=== PATIENT | male | born 1950 | race Caucasian/White ===

== ENCOUNTER 2023-01-07 13:50 | Inpatient (IN) ==
[2023-01-07] MEDS ORDERED: Albuterol/Ipratropium NEB.SOL (2.5/0.5 MG) 3 ML NEB.SOLN INH ONE (13:53)
[2023-01-07 14:19] LABS: ABS Eosinophils 0.1 10^3/uL (0.0-0.5); ABS Lymphocytes 0.4 10^3/uL (1.0-4.8); ABS Monocytes 0.9 10^3/uL (0.0-1.1); ABS Neutrophils 6.8 10^3/uL (1.5-7.6); Eosinophil % 1.1 %; Hematocrit 38.9 % (38-53); Hemoglobin 13.2 g/dL (13.2-16.3); Lymphocyte % 4.4 %; Mean Corpuscular Hgb Conc 33.9 g/dL (31-36); Mean Corpuscular Volume 100.4 fL (80-97); Mean Platelet Volume 9.2 fL (7.5-11.2); Platelet Count 91 10^3/uL (150-450); Red Blood Count 3.87 10^6/uL (4.06-5.63); Red Cell Distribution Width 20.8 % (12-17); White Blood Count 8.2 10^3/uL (3.6-10.2)
[2023-01-07 14:34] LABS: High Sens Troponin Baseline 24 pg/mL (<20)
[2023-01-07 14:42] LABS: PCO2 Arterial 31 mmHg (35-45); PO2 Arterial 97 mmHg (80-100)
[2023-01-07 14:53] LABS: ALT 15 U/L (7-52); Albumin 4.5 g/dL (3.2-5.2); Albumin/Globulin Ratio 1.7 (1-3); Alkaline Phosphatase 65 U/L (35-149); Blood Urea Nitrogen 23 mg/dL (6-24); C Reactive Protein 15.02 mg/L (<8.01); CO2 Carbon Dioxide 24 mmol/L (22-32); Calcium 9.7 mg/dL (8.6-10.3); Chloride 105 mmol/L (101-111); Creatinine, Serum 1.01 mg/dL (0.67-1.17); Globulin 2.6 g/dL (2-4); Glucose 87 mg/dL (70-100); Sodium 137 mmol/L (135-145); Total Protein 7.1 g/dL (6.4-8.9); eGFR CKD-EPI 79.5 (>60)
[2023-01-07] MEDS ORDERED: Iohexol 350 (CONTRAST) 500 ML MDV IV ONE (14:55)
[2023-01-07 14:59] LABS: Anion Gap 8 mmol/L (2-16)
[2023-01-07] MEDS ORDERED: Cefepime 2 GM in Dextrose 2 GM/50 ML BAG IV ONE (15:17)
[2023-01-07 15:22] LABS: High Sensitivity Troponin 1 Hr 24 pg/mL (<20)
[2023-01-07] MEDS ORDERED: Furosemide 40 mg/4 ml IV VIAL IV SLOW PU ONE (15:46)
[2023-01-07] MEDS ORDERED: methylPREDNISolone SOD SUCC 125 mg 2 ML VIAL IV ONE (15:46)
[2023-01-07 17:27] LABS: Urine Appearance Clear; Urine Bilirubin Negative (Negative); Urine Blood Negative (Negative); Urine Color Yellow; Urine Glucose Negative (Negative); Urine Ketones Negative (Negative); Urine Nitrite Negative (Negative); Urine Protein Negative (Negative); Urine Specific Gravity 1.019 (1.002-1.030); Urine Urobilinogen Negative (Negative)
[2023-01-07] MEDS: Azithromycin 500 mg/250 ml NS 500 MG/250 ML BAG IVPB SCH (20:03)
[2023-01-07] MEDS: Enoxaparin 40 MG/0.4 ML SYR SUBCUT SCH (20:03)
[2023-01-07] MEDS: methylPREDNISolone SOD SUCC 40 mg/ml 1 ml VIAL IV SCH (23:57)
[2023-01-08 04:35] LABS: Hematocrit 37.5 % (38-53); Hemoglobin 13.1 g/dL (13.2-16.3); Mean Corpuscular Hemoglobin 34.3 pg (27-33); Mean Corpuscular Hgb Conc 34.9 g/dL (31-36); Mean Corpuscular Volume 98.3 fL (80-97); Mean Platelet Volume 9.6 fL (7.5-11.2); Platelet Count 78 10^3/uL (150-450); Red Blood Count 3.81 10^6/uL (4.06-5.63); White Blood Count 3.7 10^3/uL (3.6-10.2)
[2023-01-08 05:06] LABS: Calcium 9.7 mg/dL (8.6-10.3); Creatinine, Serum 1.11 mg/dL (0.67-1.17); Phosphorus 4.7 mg/dL (2.5-5.0); Potassium 4.4 mmol/L (3.5-5.0)
[2023-01-08 05:13] LABS: Anisocytosis 1+
[2023-01-08 05:14] LABS: ABS Lymphocytes 0.1 10^3/uL (1.0-4.8); ABS Monocytes 0.1 10^3/uL (0.0-1.1); ABS Neutrophils 3.6 10^3/uL (1.5-7.6); Nucleated Red Blood Cells % 0.1 /100 WBC (0.0-0.4)
[2023-01-08] MEDS: methylPREDNISolone SOD SUCC 40 mg/ml 1 ml VIAL IV SCH ×3 (08:44→23:07)
[2023-01-08] MEDS ORDERED: Albuterol 2.5mg/3 ml (0.083%) NEB.SOLN INH PRN (11:18)
[2023-01-08] MEDS: Cefepime 1 GM in Dextrose 1 GM/50 ML BAG IV SCH ×2 (11:28→21:14)
[2023-01-08] MEDS: Azithromycin 500 mg/250 ml NS 500 MG/250 ML BAG IVPB SCH (17:31)
[2023-01-08] MEDS ORDERED: Ipratropium HFA INHALER(NF) (ALTERNATIVE = NEBS) INH SCH (21:00)
[2023-01-08] MEDS: Enoxaparin 40 MG/0.4 ML SYR SUBCUT SCH (21:14)
[2023-01-09 04:37] LABS: ABS Lymphocytes 0.2 10^3/uL (1.0-4.8); ABS Monocytes 0.5 10^3/uL (0.0-1.1); ABS Neutrophils 10.8 10^3/uL (1.5-7.6); ABS Nucleated RBC 0.01 10^3/ul; Hematocrit 38.7 % (38-53); Hemoglobin 13.4 g/dL (13.2-16.3); Lymphocyte % 1.3 %; Mean Corpuscular Hemoglobin 34.5 pg (27-33); Mean Corpuscular Hgb Conc 34.6 g/dL (31-36); Mean Corpuscular Volume 99.6 fL (80-97); Mean Platelet Volume 8.9 fL (7.5-11.2); Nucleated Red Blood Cells % 0.1 /100 WBC (0.0-0.4); Platelet Count 87 10^3/uL (150-450); Red Blood Count 3.88 10^6/uL (4.06-5.63); Red Cell Distribution Width 20.5 % (12-17); White Blood Count 11.5 10^3/uL (3.6-10.2)
[2023-01-09 05:03] LABS: Calcium 9.5 mg/dL (8.6-10.3); Creatinine, Serum 0.95 mg/dL (0.67-1.17); Phosphorus 4.7 mg/dL (2.5-5.0); Potassium 4.6 mmol/L (3.5-5.0); eGFR CKD-EPI 85.6 (>60)
[2023-01-09] MEDS: methylPREDNISolone SOD SUCC 40 mg/ml 1 ml VIAL IV SCH ×2 (08:24→21:39)
[2023-01-09] MEDS: Tiotropium Brom/Olodaterol MDI (ACUTE) INH SCH (10:05)
[2023-01-09] MEDS: Cefepime 1 GM in Dextrose 1 GM/50 ML BAG IV SCH (10:09)
[2023-01-09] MEDS: Azithromycin 500 mg/250 ml NS 500 MG/250 ML BAG IVPB SCH (18:10)
[2023-01-09] MEDS: Enoxaparin 40 MG/0.4 ML SYR SUBCUT SCH (21:39)
[2023-01-10 04:22] LABS: Hematocrit 36.7 % (38-53); Hemoglobin 12.5 g/dL (13.2-16.3); Mean Corpuscular Hemoglobin 34.6 pg (27-33); Mean Corpuscular Hgb Conc 34.2 g/dL (31-36); Mean Corpuscular Volume 101.1 fL (80-97); Platelet Count 81 10^3/uL (150-450); Red Blood Count 3.63 10^6/uL (4.06-5.63); Red Cell Distribution Width 19.8 % (12-17)
[2023-01-10 04:47] LABS: Calcium 9.1 mg/dL (8.6-10.3); Creatinine, Serum 1.1 mg/dL (0.67-1.17); Magnesium 2.1 mg/dL (1.9-2.7); Phosphorus 3.9 mg/dL (2.5-5.0); Potassium 4.7 mmol/L (3.5-5.0); eGFR CKD-EPI 71.8 (>60)
[2023-01-10 04:49] LABS: ABS Lymphocytes 0.1 10^3/uL (1.0-4.8); ABS Monocytes 0.5 10^3/uL (0.0-1.1); ABS Neutrophils 9.3 10^3/uL (1.5-7.6); Eosinophil % 0.1 %; Lymphocyte % 1.2 %
[2023-01-10] MEDS: Tiotropium Brom/Olodaterol MDI (ACUTE) INH SCH (07:42)
[2023-01-10] MEDS: methylPREDNISolone SOD SUCC 40 mg/ml 1 ml VIAL IV SCH (07:44)
[2023-01-10 11:22] VITALS: BP 122/75
== END 2023-01-10 14:01 | disposition home or self-care (01) | DRG 133 ==
LOC: ED 13:50 → EDHOLD 17:01 → SUATTDRO 17:01 → ICU 23:22
PROVIDERS: ADMIT Student in an Organized Health Care Education/Training Program; ATTEND Internal Medicine Critical Care Medicine

== ENCOUNTER 2023-02-14 02:03 | Inpatient (IN) ==
[2023-02-14] MEDS ORDERED: methylPREDNISolone SOD SUCC 125 mg 2 ML VIAL IV ONE (02:32)
[2023-02-14 02:54] LABS: ABS Lymphocytes 0.2 10^3/uL (1.0-4.8); ABS Monocytes 0.6 10^3/uL (0.0-1.1); ABS Neutrophils 12.6 10^3/uL (1.5-7.6); ABS Nucleated RBC 0.01 10^3/ul; Eosinophil % 0.1 %; Hematocrit 38.6 % (38-53); Hemoglobin 12.9 g/dL (13.2-16.3); Lymphocyte % 1.1 %; Mean Corpuscular Hemoglobin 33.4 pg (27-33); Mean Corpuscular Hgb Conc 33.4 g/dL (31-36); Mean Corpuscular Volume 99.8 fL (80-97); Mean Platelet Volume 9.4 fL (7.5-11.2); Nucleated Red Blood Cells % 0.1 /100 WBC (0.0-0.4); Platelet Count 79 10^3/uL (150-450); Red Blood Count 3.87 10^6/uL (4.06-5.63); Red Cell Distribution Width 15.2 % (12-17); White Blood Count 13.4 10^3/uL (3.6-10.2)
[2023-02-14 03:10] LABS: Albumin 3.8 g/dL (3.2-5.2); Albumin/Globulin Ratio 1.3 (1-3); Creatinine, Serum 1.1 mg/dL (0.67-1.17); Globulin 2.9 g/dL (2-4); Potassium 4.4 mmol/L (3.5-5.0); Total Bilirubin 0.6 mg/dL (0.2-1.0); Total Protein 6.7 g/dL (6.4-8.9); eGFR CKD-EPI 71.8 (>60)
[2023-02-14] MEDS ORDERED: Iodixanol (CONTRAST) 320 MG/ML 100 ML SDV IV ONE (03:20)
[2023-02-14] MEDS ORDERED: Albuterol 2.5mg/3 ml (0.083%) NEB.SOLN INH ONE (03:57)
[2023-02-14] MEDS ORDERED: Polyethylene Glycol 3350 17 GM PACKET PO PRN (04:35)
[2023-02-14 04:38] LABS: High Sensitivity Troponin 1 Hr 67 pg/mL (<20)
[2023-02-14] MEDS ORDERED: Nicotine PATCH 7 MG/24 HR PATCH TRANSDERM PRN (04:39)
[2023-02-14] MEDS ORDERED: Albuterol/Ipratropium NEB.SOL (2.5/0.5 MG) 3 ML NEB.SOLN INH PRN (04:39)
[2023-02-14] MEDS ORDERED: Azithromycin 500 mg/250 ml NS 500 MG/250 ML BAG IVPB SCH (05:00)
[2023-02-14] MEDS ORDERED: Albuterol/Ipratropium NEB.SOL (2.5/0.5 MG) 3 ML NEB.SOLN INH SCH (07:00)
[2023-02-14] MEDS: Albuterol 2.5mg/3 ml (0.083%) NEB.SOLN INH SCH ×3 (07:27→19:06)
[2023-02-14] MEDS: Enoxaparin 40 MG/0.4 ML SYR SUBCUT SCH (08:19)
[2023-02-14] MEDS: Azithromycin 500 mg/250 ml NS 500 MG/250 ML BAG IVPB SCH (08:19)
[2023-02-14] MEDS ORDERED: methylPREDNISolone SOD SUCC 40 mg/ml 1 ml VIAL IV SCH (10:00)
[2023-02-14] MEDS: Tiotropium Brom/Olodaterol MDI (ACUTE) INH SCH (12:20)
[2023-02-14 21:26] LABS: Magnesium 1.7 mg/dL (1.9-2.7)
[2023-02-14 21:31] LABS: Phosphorus 2.8 mg/dL (2.5-5.0)
[2023-02-15 05:00] LABS: ABS Lymphocytes 0.1 10^3/uL (1.0-4.8); ABS Monocytes 0.6 10^3/uL (0.0-1.1); Hematocrit 33.7 % (38-53); Hemoglobin 11.5 g/dL (13.2-16.3); Lymphocyte % 1.7 %; Mean Corpuscular Hemoglobin 34.2 pg (27-33); Mean Corpuscular Hgb Conc 34.3 g/dL (31-36); Mean Corpuscular Volume 99.8 fL (80-97); Mean Platelet Volume 9.2 fL (7.5-11.2); Platelet Count 75 10^3/uL (150-450); Red Blood Count 3.37 10^6/uL (4.06-5.63); Red Cell Distribution Width 14.6 % (12-17); White Blood Count 8.8 10^3/uL (3.6-10.2)
[2023-02-15 05:10] LABS: Calcium 9.1 mg/dL (8.6-10.3); Creatinine, Serum 0.84 mg/dL (0.67-1.17); Magnesium 1.9 mg/dL (1.9-2.7); Phosphorus 3.7 mg/dL (2.5-5.0); Potassium 4.4 mmol/L (3.5-5.0); eGFR CKD-EPI 93.2 (>60)
[2023-02-15] MEDS: Enoxaparin 40 MG/0.4 ML SYR SUBCUT SCH (05:47)
[2023-02-15] MEDS: Tiotropium Brom/Olodaterol MDI (ACUTE) INH SCH (07:00)
[2023-02-15] MEDS: Albuterol 2.5mg/3 ml (0.083%) NEB.SOLN INH SCH (07:00)
[2023-02-15] MEDS ORDERED: Albuterol 2.5mg/3 ml (0.083%) NEB.SOLN INH PRN (07:02)
[2023-02-15] MEDS: Azithromycin 500 mg/250 ml NS 500 MG/250 ML BAG IVPB SCH (08:31)
[2023-02-16] MEDS: Enoxaparin 40 MG/0.4 ML SYR SUBCUT SCH (06:11)
[2023-02-16 06:31] LABS: ABS Lymphocytes 0.3 10^3/uL (1.0-4.8); ABS Monocytes 0.7 10^3/uL (0.0-1.1); ABS Neutrophils 10.1 10^3/uL (1.5-7.6); ABS Nucleated RBC 0.01 10^3/ul; Eosinophil % 0.1 %; Hematocrit 36.4 % (38-53); Hemoglobin 12.3 g/dL (13.2-16.3); Lymphocyte % 3.1 %; Mean Corpuscular Hemoglobin 33.6 pg (27-33); Mean Corpuscular Hgb Conc 33.8 g/dL (31-36); Mean Corpuscular Volume 99.4 fL (80-97); Mean Platelet Volume 8.2 fL (7.5-11.2); Platelet Count 78 10^3/uL (150-450); Red Blood Count 3.66 10^6/uL (4.06-5.63); White Blood Count 11.2 10^3/uL (3.6-10.2)
[2023-02-16 06:36] LABS: INR 1.24 (0.88-1.18)
[2023-02-16 06:44] LABS: Calcium 9.2 mg/dL (8.6-10.3); Creatinine, Serum 1.03 mg/dL (0.67-1.17); Phosphorus 3.2 mg/dL (2.5-5.0); Potassium 4.3 mmol/L (3.5-5.0); eGFR CKD-EPI 77.7 (>60)
[2023-02-16] MEDS: Tiotropium Brom/Olodaterol MDI (ACUTE) INH SCH (07:21)
[2023-02-16] MEDS: Azithromycin 500 mg/250 ml NS 500 MG/250 ML BAG IVPB SCH (07:44)
[2023-02-16] MEDS: Albuterol/Ipratropium NEB.SOL (2.5/0.5 MG) 3 ML NEB.SOLN INH SCH (20:22)
[2023-02-17] MEDS: Enoxaparin 40 MG/0.4 ML SYR SUBCUT SCH (05:21)
[2023-02-17 05:42] LABS: ABS Basophils 0.1 10^3/uL (0.0-0.1); ABS Lymphocytes 0.3 10^3/uL (1.0-4.8); ABS Monocytes 0.8 10^3/uL (0.0-1.1); ABS Neutrophils 7.4 10^3/uL (1.5-7.6); Eosinophil % 0.2 %; Hematocrit 36.4 % (38-53); Hemoglobin 12.4 g/dL (13.2-16.3); Mean Corpuscular Hemoglobin 33.6 pg (27-33); Mean Corpuscular Hgb Conc 33.9 g/dL (31-36); Mean Platelet Volume 9.2 fL (7.5-11.2); Platelet Count 74 10^3/uL (150-450); Red Blood Count 3.68 10^6/uL (4.06-5.63); Red Cell Distribution Width 15.6 % (12-17); White Blood Count 8.5 10^3/uL (3.6-10.2)
[2023-02-17 05:55] LABS: Calcium 9.3 mg/dL (8.6-10.3); Creatinine, Serum 0.86 mg/dL (0.67-1.17); Magnesium 1.9 mg/dL (1.9-2.7); Phosphorus 3.5 mg/dL (2.5-5.0); Potassium 4.3 mmol/L (3.5-5.0); eGFR CKD-EPI 92.6 (>60)
[2023-02-17] MEDS: Albuterol/Ipratropium NEB.SOL (2.5/0.5 MG) 3 ML NEB.SOLN INH SCH ×2 (07:29→19:41)
[2023-02-17] MEDS: Azithromycin 500 mg/250 ml NS 500 MG/250 ML BAG IVPB SCH (07:36)
[2023-02-17] MEDS ORDERED: Lidocaine 2.5%/Prilocain 2.5% 5 GM TUBE TOPICAL ONE (13:44)
[2023-02-18 04:58] LABS: ABS Lymphocytes 0.3 10^3/uL (1.0-4.8); ABS Monocytes 0.7 10^3/uL (0.0-1.1); ABS Neutrophils 7.1 10^3/uL (1.5-7.6); ABS Nucleated RBC 0.01 10^3/ul; Eosinophil % 0.3 %; Hemoglobin 12.5 g/dL (13.2-16.3); Lymphocyte % 4.1 %; Mean Corpuscular Hemoglobin 33.5 pg (27-33); Mean Corpuscular Hgb Conc 33.8 g/dL (31-36); Mean Corpuscular Volume 99.1 fL (80-97); Mean Platelet Volume 8.5 fL (7.5-11.2); Nucleated Red Blood Cells % 0.1 /100 WBC (0.0-0.4); Platelet Count 73 10^3/uL (150-450); Red Blood Count 3.74 10^6/uL (4.06-5.63); Red Cell Distribution Width 15.2 % (12-17); White Blood Count 8.2 10^3/uL (3.6-10.2)
[2023-02-18 05:11] LABS: Calcium 9.1 mg/dL (8.6-10.3); Creatinine, Serum 0.93 mg/dL (0.67-1.17); Potassium 4.1 mmol/L (3.5-5.0); eGFR CKD-EPI 87.8 (>60)
[2023-02-18] MEDS: Enoxaparin 40 MG/0.4 ML SYR SUBCUT SCH (06:17)
[2023-02-18] MEDS: Albuterol/Ipratropium NEB.SOL (2.5/0.5 MG) 3 ML NEB.SOLN INH SCH ×2 (07:00→19:33)
[2023-02-18] MEDS ORDERED: Albuterol 2.5mg/3 ml (0.083%) NEB.SOLN INH PRN (18:50)
[2023-02-18] MEDS ORDERED: Albuterol 2.5mg/3 ml (0.083%) NEB.SOLN INH SCH (19:00)
[2023-02-19] MEDS: Enoxaparin 40 MG/0.4 ML SYR SUBCUT SCH (04:36)
[2023-02-19 05:03] LABS: ABS Lymphocytes 0.3 10^3/uL (1.0-4.8); ABS Monocytes 0.6 10^3/uL (0.0-1.1); ABS Neutrophils 6.3 10^3/uL (1.5-7.6); ABS Nucleated RBC 0.01 10^3/ul; Eosinophil % 0.5 %; Hematocrit 36.3 % (38-53); Hemoglobin 12.3 g/dL (13.2-16.3); Lymphocyte % 4.1 %; Mean Corpuscular Hemoglobin 33.6 pg (27-33); Mean Corpuscular Volume 98.9 fL (80-97); Nucleated Red Blood Cells % 0.1 /100 WBC (0.0-0.4); Platelet Count 74 10^3/uL (150-450); Red Blood Count 3.67 10^6/uL (4.06-5.63); White Blood Count 7.2 10^3/uL (3.6-10.2)
[2023-02-19 05:08] LABS: Calcium 9.1 mg/dL (8.6-10.3); Creatinine, Serum 0.86 mg/dL (0.67-1.17); Magnesium 1.9 mg/dL (1.9-2.7); Potassium 3.9 mmol/L (3.5-5.0); eGFR CKD-EPI 92.6 (>60)
[2023-02-19] MEDS: Albuterol/Ipratropium NEB.SOL (2.5/0.5 MG) 3 ML NEB.SOLN INH SCH ×3 (07:40→19:39)
[2023-02-19] MEDS: Tiotropium Brom/Olodaterol MDI (ACUTE) INH SCH (11:42)
[2023-02-19] MEDS: Albuterol HFA INHALER 8 gm MDI INH SCH ×3 (11:42→21:40)
[2023-02-19] MEDS ORDERED: SPIRIVA Respimat (tiotropium) 2.5 mcg/inh Inhaler INH SCH (12:00)
[2023-02-20] MEDS: Enoxaparin 40 MG/0.4 ML SYR SUBCUT SCH (04:10)
[2023-02-20 04:30] LABS: ABS Lymphocytes 0.4 10^3/uL (1.0-4.8); ABS Monocytes 0.6 10^3/uL (0.0-1.1); ABS Neutrophils 6.4 10^3/uL (1.5-7.6); ABS Nucleated RBC 0.01 10^3/ul; Eosinophil % 0.6 %; Hematocrit 38.6 % (38-53); Hemoglobin 13.1 g/dL (13.2-16.3); Lymphocyte % 4.7 %; Mean Corpuscular Hemoglobin 33.5 pg (27-33); Mean Corpuscular Hgb Conc 33.9 g/dL (31-36); Mean Corpuscular Volume 98.7 fL (80-97); Mean Platelet Volume 8.7 fL (7.5-11.2); Nucleated Red Blood Cells % 0.2 /100 WBC (0.0-0.4); Platelet Count 82 10^3/uL (150-450); Red Blood Count 3.91 10^6/uL (4.06-5.63); Red Cell Distribution Width 15.3 % (12-17); White Blood Count 7.5 10^3/uL (3.6-10.2)
[2023-02-20 04:45] LABS: Calcium 9.6 mg/dL (8.6-10.3); Creatinine, Serum 0.99 mg/dL (0.67-1.17); Potassium 4.1 mmol/L (3.5-5.0); eGFR CKD-EPI 81.4 (>60)
[2023-02-20] MEDS: Tiotropium Brom/Olodaterol MDI (ACUTE) INH SCH (07:07)
[2023-02-20] MEDS: Albuterol HFA INHALER 8 gm MDI INH SCH ×3 (08:02→19:21)
[2023-02-20] MEDS: Albuterol/Ipratropium NEB.SOL (2.5/0.5 MG) 3 ML NEB.SOLN INH SCH ×2 (13:21→17:23)
[2023-02-20] MEDS: Morphine 2 MG/ML SYRINGE IV PRN (19:57)
[2023-02-21] MEDS: Enoxaparin 40 MG/0.4 ML SYR SUBCUT SCH (04:08)
[2023-02-21 04:16] LABS: ABS Lymphocytes 0.3 10^3/uL (1.0-4.8); ABS Monocytes 0.6 10^3/uL (0.0-1.1); ABS Neutrophils 6.5 10^3/uL (1.5-7.6); Eosinophil % 0.5 %; Hematocrit 37.3 % (38-53); Hemoglobin 12.6 g/dL (13.2-16.3); Lymphocyte % 3.8 %; Mean Corpuscular Hemoglobin 33.4 pg (27-33); Mean Corpuscular Hgb Conc 33.9 g/dL (31-36); Mean Corpuscular Volume 98.8 fL (80-97); Mean Platelet Volume 8.9 fL (7.5-11.2); Nucleated Red Blood Cells % 0.1 /100 WBC (0.0-0.4); Platelet Count 84 10^3/uL (150-450); Red Blood Count 3.78 10^6/uL (4.06-5.63); Red Cell Distribution Width 15.3 % (12-17); White Blood Count 7.5 10^3/uL (3.6-10.2)
[2023-02-21 04:30] LABS: Calcium 9.1 mg/dL (8.6-10.3); Creatinine, Serum 0.94 mg/dL (0.67-1.17); Potassium 4.1 mmol/L (3.5-5.0); eGFR CKD-EPI 86.7 (>60)
[2023-02-21] MEDS: Albuterol HFA INHALER 8 gm MDI INH SCH ×3 (07:18→20:23)
[2023-02-21] MEDS: Tiotropium Brom/Olodaterol MDI (ACUTE) INH SCH (07:18)
[2023-02-21] MEDS: Morphine 2 MG/ML SYRINGE IV PRN ×2 (09:26→21:06)
[2023-02-21] MEDS: Albuterol/Ipratropium NEB.SOL (2.5/0.5 MG) 3 ML NEB.SOLN INH SCH ×2 (13:38→16:38)
[2023-02-22] MEDS: Enoxaparin 40 MG/0.4 ML SYR SUBCUT SCH (06:05)
[2023-02-22] MEDS: Tiotropium Brom/Olodaterol MDI (ACUTE) INH SCH (06:59)
[2023-02-22] MEDS: Albuterol HFA INHALER 8 gm MDI INH SCH ×3 (07:01→21:06)
[2023-02-22] MEDS: Albuterol/Ipratropium NEB.SOL (2.5/0.5 MG) 3 ML NEB.SOLN INH SCH ×2 (12:20→16:41)
[2023-02-23] MEDS: Enoxaparin 40 MG/0.4 ML SYR SUBCUT SCH (06:15)
[2023-02-23] MEDS: Albuterol HFA INHALER 8 gm MDI INH SCH ×3 (07:43→19:40)
[2023-02-23] MEDS: Tiotropium Brom/Olodaterol MDI (ACUTE) INH SCH (07:43)
[2023-02-23] MEDS: Albuterol/Ipratropium NEB.SOL (2.5/0.5 MG) 3 ML NEB.SOLN INH SCH ×2 (11:42→16:20)
[2023-02-23] MEDS ORDERED: Magnesium Hydroxide LIQ 30 ML UDC PO PRN (14:44)
[2023-02-24] MEDS: Enoxaparin 40 MG/0.4 ML SYR SUBCUT SCH (05:27)
[2023-02-24] MEDS: Albuterol HFA INHALER 8 gm MDI INH SCH ×3 (07:06→20:16)
[2023-02-24] MEDS: Tiotropium Brom/Olodaterol MDI (ACUTE) INH SCH (07:07)
[2023-02-24] MEDS: Albuterol/Ipratropium NEB.SOL (2.5/0.5 MG) 3 ML NEB.SOLN INH SCH ×2 (12:59→16:42)
[2023-02-25] MEDS: Enoxaparin 40 MG/0.4 ML SYR SUBCUT SCH (06:14)
[2023-02-25] MEDS: Albuterol HFA INHALER 8 gm MDI INH SCH ×3 (07:30→20:25)
[2023-02-25] MEDS: Tiotropium Brom/Olodaterol MDI (ACUTE) INH SCH (07:30)
[2023-02-25] MEDS: Albuterol/Ipratropium NEB.SOL (2.5/0.5 MG) 3 ML NEB.SOLN INH SCH ×2 (11:49→16:57)
[2023-02-25 11:57] LABS: PCO2 Arterial 34 mmHg (35-45)
[2023-02-25 12:00] LABS: PO2 Arterial 51 mmHg (80-100)
[2023-02-26] MEDS: Enoxaparin 40 MG/0.4 ML SYR SUBCUT SCH (06:20)
[2023-02-26] MEDS: Albuterol HFA INHALER 8 gm MDI INH SCH ×3 (07:01→20:49)
[2023-02-26] MEDS: Tiotropium Brom/Olodaterol MDI (ACUTE) INH SCH (07:02)
[2023-02-26] MEDS: Albuterol/Ipratropium NEB.SOL (2.5/0.5 MG) 3 ML NEB.SOLN INH SCH ×2 (11:52→16:19)
[2023-02-27] MEDS: Enoxaparin 40 MG/0.4 ML SYR SUBCUT SCH (06:00)
[2023-02-27] MEDS: Tiotropium Brom/Olodaterol MDI (ACUTE) INH SCH (07:00)
[2023-02-27] MEDS: Albuterol HFA INHALER 8 gm MDI INH SCH ×3 (07:00→19:44)
[2023-02-27] MEDS: Albuterol/Ipratropium NEB.SOL (2.5/0.5 MG) 3 ML NEB.SOLN INH SCH ×2 (12:20→17:32)
[2023-02-28] MEDS: Enoxaparin 40 MG/0.4 ML SYR SUBCUT SCH ×2 (06:05→08:09)
[2023-02-28] MEDS: Albuterol HFA INHALER 8 gm MDI INH SCH ×3 (07:12→21:09)
[2023-02-28] MEDS: Tiotropium Brom/Olodaterol MDI (ACUTE) INH SCH (07:12)
[2023-02-28] MEDS: Albuterol/Ipratropium NEB.SOL (2.5/0.5 MG) 3 ML NEB.SOLN INH SCH ×2 (12:21→16:59)
[2023-03-01] MEDS: Enoxaparin 40 MG/0.4 ML SYR SUBCUT SCH (06:07)
[2023-03-01 06:18] LABS: Hematocrit 37.1 % (38-53); Hemoglobin 12.7 g/dL (13.2-16.3); Mean Platelet Volume 8.7 fL (7.5-11.2); Platelet Count 65 10^3/uL (150-450)
[2023-03-01 06:47] LABS: Creatinine, Serum 0.91 mg/dL (0.67-1.17); eGFR CKD-EPI 90.1 (>60)
[2023-03-01] MEDS: Albuterol HFA INHALER 8 gm MDI INH SCH ×2 (07:22→13:49)
[2023-03-01] MEDS: Tiotropium Brom/Olodaterol MDI (ACUTE) INH SCH (07:22)
[2023-03-01] MEDS: Albuterol/Ipratropium NEB.SOL (2.5/0.5 MG) 3 ML NEB.SOLN INH SCH ×2 (11:39→15:54)
[2023-03-01 16:57] VITALS: BP 112/72
== END 2023-03-01 17:41 | disposition home or self-care (01) | DRG 133 ==
LOC: ED 02:03 → SUATTDRO 04:36 → EDHOLD 04:36 → ICU 06:29
PROVIDERS: ADMIT Internal Medicine; ATTEND Internal Medicine

== ENCOUNTER 2023-03-01 20:08 | Observation (INO) ==
[2023-03-01] MEDS ORDERED: Ondansetron 4 mg VIAL 2 MG/ML 2 ml VIAL IV PRN (22:57)
[2023-03-01] MEDS ORDERED: Magnesium Hydroxide LIQ 30 ML UDC PO PRN (22:57)
[2023-03-01] MEDS ORDERED: Polyethylene Glycol 3350 17 GM PACKET PO PRN ×2 (22:57→23:26)
[2023-03-01] MEDS ORDERED: Enoxaparin 40 MG/0.4 ML SYR SUBCUT SCH (23:00)
[2023-03-01] MEDS ORDERED: Albuterol HFA INHALER 8 gm MDI INH PRN (23:26)
[2023-03-01] MEDS ORDERED: Albuterol 2.5mg/3 ml (0.083%) NEB.SOLN INH PRN (23:26)
[2023-03-02 05:08] LABS: ABS Lymphocytes 0.4 10^3/uL (1.0-4.8); ABS Monocytes 0.6 10^3/uL (0.0-1.1); ABS Neutrophils 6.9 10^3/uL (1.5-7.6); ABS Nucleated RBC 0.01 10^3/ul; Eosinophil % 0.6 %; Hematocrit 37.5 % (38-53); Hemoglobin 12.9 g/dL (13.2-16.3); Lymphocyte % 4.8 %; Mean Corpuscular Hemoglobin 33.8 pg (27-33); Mean Corpuscular Hgb Conc 34.4 g/dL (31-36); Mean Corpuscular Volume 98.3 fL (80-97); Mean Platelet Volume 8.9 fL (7.5-11.2); Nucleated Red Blood Cells % 0.1 /100 WBC (0.0-0.4); Platelet Count 61 10^3/uL (150-450); Red Blood Count 3.81 10^6/uL (4.06-5.63); Red Cell Distribution Width 15.3 % (12-17)
[2023-03-02 05:20] LABS: Calcium 9.1 mg/dL (8.6-10.3); Creatinine, Serum 0.92 mg/dL (0.67-1.17); Magnesium 1.9 mg/dL (1.9-2.7); Potassium 3.9 mmol/L (3.5-5.0); eGFR CKD-EPI 88.9 (>60)
[2023-03-02] MEDS ORDERED: Albuterol/Ipratropium NEB.SOL (2.5/0.5 MG) 3 ML NEB.SOLN INH SCH (07:00)
[2023-03-02] MEDS ORDERED: Albuterol HFA INHALER 8 gm MDI INH PRN (07:43)
[2023-03-02] MEDS: Albuterol HFA INHALER 8 gm MDI INH SCH ×2 (08:42→13:59)
[2023-03-02] MEDS ORDERED: Nicotine PATCH 7 MG/24 HR PATCH TRANSDERM PRN (09:00)
[2023-03-02] MEDS ORDERED: Multivitamins/Minerals TAB PO SCH (09:00)
[2023-03-02] MEDS ORDERED: Tiotropium Brom/Olodaterol MDI (ACUTE) INH SCH (09:00)
[2023-03-02] MEDS: Albuterol/Ipratropium NEB.SOL (2.5/0.5 MG) 3 ML NEB.SOLN INH SCH ×2 (11:59→17:19)
[2023-03-02 14:25] VITALS: BP 112/69
== END 2023-03-02 18:25 | disposition home or self-care (01) ==
LOC: ED 20:08 → EDHOLD 22:57 → INTOOBSV 22:57 → SUATTDRO 22:57 → ICU 03-02 00:14
PROVIDERS: ADMIT Internal Medicine; ATTEND Internal Medicine

== ENCOUNTER 2023-03-25 13:47 | Inpatient (IN) ==
[2023-03-25] MEDS ORDERED: Albuterol/Ipratropium NEB.SOL (2.5/0.5 MG) 3 ML NEB.SOLN INH ONE (14:05)
[2023-03-25] MEDS ORDERED: Albuterol/Ipratropium NEB.SOL (2.5/0.5 MG) 3 ML NEB.SOLN ONE (14:05)
[2023-03-25 14:08] LABS: PCO2 Arterial 33 mmHg (35-45)
[2023-03-25 14:32] LABS: Hematocrit 40.5 % (38-53); Hemoglobin 13.5 g/dL (13.2-16.3); Mean Corpuscular Hemoglobin 32.6 pg (27-33); Mean Corpuscular Hgb Conc 33.4 g/dL (31-36); Mean Corpuscular Volume 97.5 fL (80-97); Red Blood Count 4.15 10^6/uL (4.06-5.63); Red Cell Distribution Width 16.6 % (12-17)
[2023-03-25 14:38] LABS: Albumin 3.8 g/dL (3.2-5.2); Albumin/Globulin Ratio 1.4 (1-3); C Reactive Protein 53.1 mg/L (<8.01); Calcium 9.6 mg/dL (8.6-10.3); Creatinine, Serum 1.09 mg/dL (0.67-1.17); Globulin 2.7 g/dL (2-4); Magnesium 2.4 mg/dL (1.9-2.7); Phosphorus 3.3 mg/dL (2.5-5.0); Potassium 4.5 mmol/L (3.5-5.0); Total Bilirubin 0.7 mg/dL (0.2-1.0); Total Protein 6.5 g/dL (6.4-8.9); eGFR CKD-EPI 72.6 (>60)
[2023-03-25] MEDS ORDERED: Iohexol 350 (CONTRAST) 500 ML MDV IV ONE (14:47)
[2023-03-25 14:52] LABS: ABS Basophils 0.2 10^3/uL (0.0-0.1); ABS Lymphocytes 0.1 10^3/uL (1.0-4.8); ABS Monocytes 0.4 10^3/uL (0.0-1.1); ABS Neutrophils 9.3 10^3/uL (1.5-7.6); ABS Nucleated RBC 0.02 10^3/ul; Eosinophil % 0.1 %; Lymphocyte % 1.1 %; Nucleated Red Blood Cells % 0.2 /100 WBC (0.0-0.4)
[2023-03-25 15:05] LABS: Mean Platelet Volume 8.8 fL (7.5-11.2); Platelet Count 68 10^3/uL (150-450)
[2023-03-25 15:11] LABS: INR 1.3 (0.88-1.18)
[2023-03-25 16:18] LABS: High Sensitivity Troponin 1 Hr 1324 pg/mL (<20)
[2023-03-25] MEDS ORDERED: Heparin DRIP 25,000 UNITS BAG 25,000 UNITS/500 ML BAG IV SCH (16:30)
[2023-03-25] MEDS ORDERED: Heparin 5000 UNITS/ML 1 mL VIAL IV SCH (17:00)
[2023-03-25] MEDS ORDERED: Nicotine PATCH 7 MG/24 HR PATCH TRANSDERM PRN (17:29)
[2023-03-25] MEDS ORDERED: Polyethylene Glycol 3350 17 GM PACKET PO PRN (17:29)
[2023-03-25] MEDS ORDERED: methylPREDNISolone SOD SUCC 40 mg/ml 1 ml VIAL IV SCH (18:00)
[2023-03-25] MEDS: methylPREDNISolone SOD SUCC 40 mg/ml 1 ml VIAL IV SCH (18:12)
[2023-03-25] MEDS: Enoxaparin 80 MG/0.8 ML SYR SUBCUT SCH (19:08)
[2023-03-25] MEDS: Albuterol/Ipratropium NEB.SOL (2.5/0.5 MG) 3 ML NEB.SOLN INH SCH ×2 (19:53→22:04)
[2023-03-25] MEDS: Tiotropium Brom/Olodaterol MDI (ACUTE) INH SCH (19:54)
[2023-03-25] MEDS ORDERED: Lorazepam PYXIS KEY PRN (20:13)
[2023-03-25] MEDS: LORazepam 2 mg VIAL 1 ml IV PUSH PRN (22:49)
[2023-03-26 04:26] LABS: ABS Lymphocytes 0.1 10^3/uL (1.0-4.8); ABS Monocytes 0.2 10^3/uL (0.0-1.1); ABS Neutrophils 4.4 10^3/uL (1.5-7.6); ABS Nucleated RBC 0.01 10^3/ul; Eosinophil % 0.1 %; Hematocrit 36.1 % (38-53); Hemoglobin 12.4 g/dL (13.2-16.3); Mean Corpuscular Hgb Conc 34.3 g/dL (31-36); Mean Corpuscular Volume 96.2 fL (80-97); Nucleated Red Blood Cells % 0.1 /100 WBC (0.0-0.4); Red Blood Count 3.76 10^6/uL (4.06-5.63); Red Cell Distribution Width 16.4 % (12-17); White Blood Count 4.7 10^3/uL (3.6-10.2)
[2023-03-26 04:32] LABS: Creatinine, Serum 1.01 mg/dL (0.67-1.17); Potassium 4.6 mmol/L (3.5-5.0); eGFR CKD-EPI 79.5 (>60)
[2023-03-26] MEDS: Albuterol/Ipratropium NEB.SOL (2.5/0.5 MG) 3 ML NEB.SOLN INH SCH ×6 (04:58→22:50)
[2023-03-26 05:08] LABS: Mean Platelet Volume 8.1 fL (7.5-11.2); Platelet Count 50 10^3/uL (150-450)
[2023-03-26] MEDS: Enoxaparin 80 MG/0.8 ML SYR SUBCUT SCH ×2 (05:43→18:23)
[2023-03-26] MEDS: methylPREDNISolone SOD SUCC 40 mg/ml 1 ml VIAL IV SCH ×2 (05:43→18:23)
[2023-03-26] MEDS: Tiotropium Brom/Olodaterol MDI (ACUTE) INH SCH ×2 (06:36→07:03)
[2023-03-26] MEDS: Albuterol 2.5mg/3 ml (0.083%) NEB.SOLN INH PRN (16:43)
[2023-03-26] MEDS: LORazepam 2 mg VIAL 1 ml IV PUSH PRN (22:47)
[2023-03-27] MEDS: Albuterol/Ipratropium NEB.SOL (2.5/0.5 MG) 3 ML NEB.SOLN INH SCH ×5 (02:40→19:30)
[2023-03-27 04:42] LABS: ABS Lymphocytes 0.1 10^3/uL (1.0-4.8); ABS Monocytes 0.5 10^3/uL (0.0-1.1); ABS Neutrophils 9.3 10^3/uL (1.5-7.6); ABS Nucleated RBC 0.03 10^3/ul; Hematocrit 38.5 % (38-53); Hemoglobin 13.1 g/dL (13.2-16.3); Lymphocyte % 0.7 %; Mean Corpuscular Hgb Conc 33.9 g/dL (31-36); Mean Corpuscular Volume 97.1 fL (80-97); Mean Platelet Volume 8.6 fL (7.5-11.2); Nucleated Red Blood Cells % 0.3 /100 WBC (0.0-0.4); Platelet Count 61 10^3/uL (150-450); Red Blood Count 3.97 10^6/uL (4.06-5.63); Red Cell Distribution Width 16.4 % (12-17)
[2023-03-27 04:55] LABS: Calcium 9.2 mg/dL (8.6-10.3); Creatinine, Serum 1.16 mg/dL (0.67-1.17); Potassium 4.5 mmol/L (3.5-5.0); eGFR CKD-EPI 67.3 (>60)
[2023-03-27] MEDS: Enoxaparin 80 MG/0.8 ML SYR SUBCUT SCH ×2 (05:40→17:58)
[2023-03-27] MEDS: methylPREDNISolone SOD SUCC 40 mg/ml 1 ml VIAL IV SCH (05:43)
[2023-03-27] MEDS: Tiotropium Brom/Olodaterol MDI (ACUTE) INH SCH (07:03)
[2023-03-27] MEDS ORDERED: Furosemide 40 mg/4 ml IV VIAL IV ONE ×2 (08:37→18:00)
[2023-03-27] MEDS ORDERED: methylPREDNISolone SOD SUCC 40 mg/ml 1 ml VIAL IV SCH ×2 (09:00→21:00)
[2023-03-27 11:16] LABS: Ferritin 399.8 ng/mL (24-336)
[2023-03-27] MEDS: methylPREDNISolone SOD SUCC 1,000 MG in NS 0.9% 100 ml BAG 100 ML IVPB SCH (12:40)
[2023-03-27] MEDS: LORazepam 2 mg VIAL 1 ml IV PUSH PRN (22:50)
[2023-03-28] MEDS: Albuterol/Ipratropium NEB.SOL (2.5/0.5 MG) 3 ML NEB.SOLN INH SCH ×7 (01:26→23:07)
[2023-03-28] MEDS: Enoxaparin 80 MG/0.8 ML SYR SUBCUT SCH ×2 (06:20→21:18)
[2023-03-28 06:51] LABS: Anion Gap 9 mmol/L (2-16); Blood Urea Nitrogen 38 mg/dL (6-24); CO2 Carbon Dioxide 29 mmol/L (22-32); Calcium 9.5 mg/dL (8.6-10.3); Chloride 97 mmol/L (101-111); Creatinine, Serum 1.16 mg/dL (0.67-1.17); Glucose 154 mg/dL (70-100); Magnesium 2.1 mg/dL (1.9-2.7); Potassium 4.1 mmol/L (3.5-5.0); Sodium 135 mmol/L (135-145); eGFR CKD-EPI 67.3 (>60)
[2023-03-28 06:59] LABS: ABS Lymphocytes 0.1 10^3/uL (1.0-4.8); ABS Monocytes 0.6 10^3/uL (0.0-1.1); ABS Neutrophils 8.3 10^3/uL (1.5-7.6); ABS Nucleated RBC 0.02 10^3/ul; Hematocrit 40.4 % (38-53); Hemoglobin 13.8 g/dL (13.2-16.3); Lymphocyte % 0.8 %; Mean Corpuscular Hemoglobin 32.8 pg (27-33); Mean Corpuscular Hgb Conc 34.1 g/dL (31-36); Mean Corpuscular Volume 96.1 fL (80-97); Nucleated Red Blood Cells % 0.2 /100 WBC (0.0-0.4); Platelet Count 56 10^3/uL (150-450); Red Cell Distribution Width 16.6 % (12-17); White Blood Count 8.9 10^3/uL (3.6-10.2)
[2023-03-28 07:29] LABS: Folate > 20.00 ng/mL (5.90-24.80)
[2023-03-28 07:30] LABS: Vitamin B12 513 pg/mL (180-914)
[2023-03-28] MEDS: Tiotropium Brom/Olodaterol MDI (ACUTE) INH SCH (07:59)
[2023-03-28] MEDS: methylPREDNISolone SOD SUCC 1,000 MG in NS 0.9% 100 ml BAG 100 ML IVPB SCH (08:10)
[2023-03-28] MEDS ORDERED: Furosemide 40 mg/4 ml IV VIAL IV SLOW PU ONE (09:43)
[2023-03-28] MEDS: Phenol 1.4% Throat Spray BTL MT PRN ×3 (13:51→22:58)
[2023-03-28] MEDS ORDERED: LORazepam 2 mg VIAL 1 ml ONE (23:15)
[2023-03-29] MEDS: Albuterol/Ipratropium NEB.SOL (2.5/0.5 MG) 3 ML NEB.SOLN INH SCH ×5 (03:16→20:04)
[2023-03-29 06:42] LABS: ABS Lymphocytes 0.1 10^3/uL (1.0-4.8); ABS Monocytes 0.7 10^3/uL (0.0-1.1); ABS Neutrophils 9.3 10^3/uL (1.5-7.6); ABS Nucleated RBC 0.01 10^3/ul; Hematocrit 38.7 % (38-53); Hemoglobin 13.4 g/dL (13.2-16.3); Lymphocyte % 0.7 %; Mean Corpuscular Hgb Conc 34.6 g/dL (31-36); Mean Corpuscular Volume 95.4 fL (80-97); Nucleated Red Blood Cells % 0.1 /100 WBC (0.0-0.4); Platelet Count 50 10^3/uL (150-450); Red Blood Count 4.06 10^6/uL (4.06-5.63); Red Cell Distribution Width 16.9 % (12-17); White Blood Count 10.1 10^3/uL (3.6-10.2)
[2023-03-29 06:52] LABS: Creatinine, Serum 1.35 mg/dL (0.67-1.17); Magnesium 2.1 mg/dL (1.9-2.7); Potassium 3.9 mmol/L (3.5-5.0); eGFR CKD-EPI 56.1 (>60)
[2023-03-29] MEDS: Tiotropium Brom/Olodaterol MDI (ACUTE) INH SCH (07:20)
[2023-03-29] MEDS: methylPREDNISolone SOD SUCC 1,000 MG in NS 0.9% 100 ml BAG 100 ML IVPB SCH (08:21)
[2023-03-29] MEDS: Enoxaparin 80 MG/0.8 ML SYR SUBCUT SCH (08:22)
[2023-03-29] MEDS ORDERED: methylPREDNISolone SOD SUCC 40 mg/ml 1 ml VIAL IV SCH (09:00)
[2023-03-29] MEDS: Albuterol 2.5mg/3 ml (0.083%) NEB.SOLN INH PRN (15:04)
[2023-03-29] MEDS: Phenol 1.4% Throat Spray BTL MT PRN (15:20)
[2023-03-29] MEDS ORDERED: Enoxaparin 40 MG/0.4 ML SYR SUBCUT SCH (20:00)
[2023-03-29] MEDS ORDERED: Lorazepam PYXIS KEY PRN (22:27)
[2023-03-29] MEDS ORDERED: LORazepam 2 mg VIAL 1 ml IV PUSH ONE (22:27)
[2023-03-29] MEDS ORDERED: LORazepam 2 mg VIAL 1 ml ONE (22:29)
[2023-03-30] MEDS ORDERED: Etomidate 40 mg/20 ml (2 MG/ML) 20 ml VIAL (40 mg) ONE (00:16)
[2023-03-30] MEDS ORDERED: Rocuronium 50 mg VIAL 10 mg/ml 5 ml VIAL (50 mg) ONE (00:16)
[2023-03-30] MEDS ORDERED: Norepinephrine 16MCG/ML BAGD5W 4,000 MCG/250 ML BAG IV ONE (00:18)
[2023-03-30 00:49] LABS: PCO2 Arterial 49 mmHg (35-45)
[2023-03-30 00:51] LABS: PO2 Arterial < 38 mmHg (80-100)
[2023-03-30] MEDS ORDERED: Propofol 10 mg/ml 100 ML BTL 1,000 MG/100 ML BTL ONE (00:53)
[2023-03-30] MEDS ORDERED: Propofol 10 mg/ml 100 ML BTL 1,000 MG/100 ML BTL IV SCH (01:00)
[2023-03-30] MEDS ORDERED: EPINEPHrine SYR 0.1MG/ML 10 ml SYRINGE IV ONE (01:18)
[2023-03-30] MEDS ORDERED: Sodium Bicarbonate 8.4% SYR 50 ml SYRINGE ONE (01:18)
[2023-03-30] MEDS: Albuterol/Ipratropium NEB.SOL (2.5/0.5 MG) 3 ML NEB.SOLN INH SCH (01:51)
[2023-03-30 03:02] VITALS: BP 88/19
[2023-03-30] MEDS ORDERED: Etomidate 20 mg/10 ml 2 MG/ML 10 ml VIAL IV ONE (03:25)
[2023-03-30] MEDS ORDERED: Rocuronium 50 mg VIAL 10 mg/ml 5 ml VIAL (50 mg) IV ONE (03:25)
[2023-03-30] MEDS ORDERED: methylPREDNISolone SOD SUCC 40 mg/ml 1 ml VIAL IV SCH (09:00)
== END 2023-03-30 01:40 | disposition expired | DRG 134 ==
LOC: ED 13:47 → SUATTDRO 16:55 → EDHOLD 16:55 → ICU 19:45
PROVIDERS: ADMIT Student in an Organized Health Care Education/Training Program; ATTEND Internal Medicine